=== PATIENT | female | born 1975 | race Caucasian/White ===

== ENCOUNTER 2022-11-28 15:26 | Outpatient (REF) | payer MEDICAID, SELFPAY ==
--- OUTSIDE RECORDS SUMMARY | 2022-11-28 15:29 | XMS_ITS | CCD ---
Author Name Unknown Address [address] [place] [address] [phone] Organization Unknown Address [address] [place] [address] [phone] Care Team Providers Care Freezing Machine Operator Name Role Phone RITA FAUSTIN Attending Physician [phone] Vital Signs Unknown or Not Available. Allergies Allergy Code Allergy Type Reaction Status MORPHINE 7052 Drug allergy Nausea Active Procedures Unknown or Not Available. History of Immunizations Unknown or Not Available. Problems No Known Problems Results Unknown or Not Available. Active Medications Medication Code Dose Units Frequency Route Modificatio n Start Date/Time Keflex 500MG Oral Capsule 374578 1 CAPSULE TWICE A DAY ORAL 05/26/19 23 18:12 Prescription Detail TAKE 1 CAPSULE ORAL TWICE A DAY Medications Administered During Visit Unknown or Not Available. 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 If you have left the hospital and have any questions, please contact your primary care physician. Chief Complaint and Reason For Visit Chief Complaint Date of Onset CERVICALAGIA Function Status Unknown or Not Available. Plan of Care Unknown or Not Available. Referral/Transition of Care Unknown or Not Available.
--- OUTSIDE RECORDS SUMMARY | 2022-11-28 15:29 | XMS_ITS | CCD ---
Author Name Unknown Address [address] [place] [address] [id number] Organization Unknown Address [address] [place] [address] [phone] Care Team Providers Care Donation Specialist Name Role Phone RITA FAUSTIN Attending Physician [phone] Vital Signs Unknown or Not Available. Allergies Allergy Code Allergy Type Reaction Status MORPHINE 7052 Drug allergy Nausea Active Procedures Unknown or Not Available. History of Immunizations Unknown or Not Available. Problems No Known Problems Results Unknown or Not Available. Active Medications Medication Code Dose Units Frequency Route Modificatio n Start Date/Time Keflex 500MG Oral Capsule 047895 1 CAPSULE TWICE A DAY ORAL 05/26/19 23 18:12 Prescription Detail TAKE 1 CAPSULE ORAL TWICE A DAY Medications Administered During Visit Unknown or Not Available. Encounters Encounter Diagnosis Diagnosis Code Start Date Encounter for screening mamm ogram for malignant neoplasm of breast Z1231 04/26/2021 Social History Smoking Status Code Start Date End Date Never smoker [id number] Patient Decision Aids Unknown or Not Available. Discharge Instructions You were admitted to [facility] on 04/26/2021 08:24 with a principal diagnosis of Encounter for screening mammogram for malignant neoplasm of breast You were discharged from [facility] on 04/26/2021 08:24 Should you have any questions prior to discharge, please contact a member of your healthcare team. If you have left the hospital and have any questions, please contact your primary care physician. Chief Complaint and Reason For Visit Chief Complaint Date of Onset SCREENING NECK PAIN LOW BACK PAIN Function Status Unknown or Not Available. Plan of Care Unknown or Not Available. Referral/Transition of Care Unknown or Not Available.
--- OUTSIDE RECORDS SUMMARY | 2022-11-28 15:29 | XMS_ITS | CCD ---
Author Name Unknown Address [address] [place] [address] [phone] Organization Unknown Address [address] [place] [address] [phone] Care Team Providers Care Welfare Director Name Role Phone RITA FAUSTIN Attending Physician [phone] Vital Signs Unknown or Not Available. Allergies Allergy Code Allergy Type Reaction Status MORPHINE 7052 Drug allergy Nausea Active Procedures Unknown or Not Available. History of Immunizations Unknown or Not Available. Problems No Known Problems Results Unknown or Not Available. Active Medications Medication Code Dose Units Frequency Route Modificatio n Start Date/Time Keflex 500MG Oral Capsule 522826 1 CAPSULE TWICE A DAY ORAL 05/26/19 23 18:12 Prescription Detail TAKE 1 CAPSULE ORAL TWICE A DAY Medications Administered During Visit Unknown or Not Available. Encounters Encounter Diagnosis Diagnosis Code Start Date Degeneration of lumbar intervertebral disc 13739 006 08/16/2021 Social History Smoking Status Code Start Date End Date Never smoker [id number] Patient Decision Aids Unknown or Not Available. Discharge Instructions You were admitted to [facility] on 08/16/2021 07:35 with a principal diagnosis of Other intervertebral disc degeneration, lumbar region You were discharged from [facility] on 08/16/2021 07:35 Should you have any questions prior to discharge, please contact a member of your healthcare team. If you have left the hospital and have any questions, please contact your primary care physician. Chief Complaint and Reason For Visit Chief Complaint Date of Onset LBP Function Status Unknown or Not Available. Plan of Care Unknown or Not Available. Referral/Transition of Care Unknown or Not Available.
--- OUTSIDE RECORDS SUMMARY | 2022-11-28 15:29 | XMS_ITS | Continuity of Care Document ---
Author Name Unknown Organization [facility] Address [address] [place] [address] Care Team Providers Care Dispatch Clerk Name Role Phone Denise Ronquillo Primary Care Physician [facility] - 10/23/[address] [address] Discharge Disposition: Home or Self Care Attending Physician: iCelo Christine NP Admitting Physician: Cielo Christine NP Referring Physician: Cielo Christine CHIEF COMPRESSOR STATION ENGINEER Allergies, Adverse Reactions, Alerts Substance Reaction Severity Status morphine Unknown Active Ambien Unknown Active Assessment and Plan Future Appointments Medications eszopiclone 3 mg oral tablet 3 mg = 1 tab, Oral, every day at bedtime, PRN as needed for insomnia, 0 Refill(s) Start Date: 09/26/22 Status: Ordered Problem List Condition Confirmation Course Effective Dates Status H ealth Status Informant Acute depression Confirmed Active Bunion, left foot Confirmed Active Back pain, chronic Confirmed Active Chronic insomnia Confirmed Active History of posttraumatic stress disorder (PTSD) Confirmed Active IBS (irritable bowel syndrome) Confirmed Active Restless leg syndrome Confirmed Active Snoring Confirmed Active Social History Social History Type Response Tobacco Former tobacco user Tobacco Use:. 1 Sex Female 1quit 1995 Patient Care team information Care Team Personnel Name: Denise Ronquillo MD Position: No Access Member Role: Primary Care Physician Care Team Related Persons Name: ELISEO WALLACE
--- OUTSIDE RECORDS SUMMARY | 2022-11-28 15:29 | XMS_ITS | Continuity of Care Document ---
Author Name Unknown Organization [facility] Address [address] [place] [address] Care Team Providers Care Warehouse Shipping Associate Name Role Phone Denise Ronquillo Primary Care Physician Encounter [facility] Date(s): 09/26/22 - 09/26/22 [facility] [address] [place] [address] Discharge Disposition: Home Allergies, Adverse Reactions, Alerts Substance Reaction Severity [...]
--- OUTSIDE RECORDS SUMMARY | 2022-11-28 15:29 | XMS_ITS | Continuity of Care Document ---
Author Name Unknown Organization [facility] Address [address] [place] [address] Care Team Providers Care Data Processing Systems Project Planner Name Role Phone Denise Ronquillo Primary Care Physician [phone] Encounter [facility] Date(s): 09/26/22 - 09/26/22 [facility] [address] [place] [address] Encounter Diagnosis Chronic insomnia(Discharge Diagnosis) - 09/25/22 Snoring(Discharge Diagnosis) - 09/26/22 Restless leg syndrome(Discharge Diagnosis) - 09/26/22 Discharge Disposition: Home or Self Care Attending Physician: Cielo Christine CARTON LINER Allergies, Adverse Reactions, Alerts Substance Reaction Severity Status morphine Unknown Active Ambien Unknown Active Assessment and Plan Future Appointments Functional Status 09/26/22 Other exposure to Infectious Disease Non e Medications eszopiclone 3 mg oral tablet 3 [...] leg syndrome Confirmed Active Snoring Confirmed Active Vital Signs Most recent to oldest [Reference Range]: 1 Peripheral Pulse Rate [60-100 bpm] 71 bp m (09/26/22 12:08 PM) Blood Pressure [90-140/60-90 mmHg] 123/7 2mmHg (09/26/22 12:08 PM) Weight 63.50 kg (09/26/22 12:08 PM) Weight Measured (lbs) 139.993 lb (09/26/22 12:08 PM) Height 158 cm (09/26/22 12:08 PM) Height/Length Measured (inches) 62.2 inc h (09/26/22 12:08 PM) BSA Measured 1.67 m2 (09/26/22 12:08 PM) Body Mass Index 25.44 kg/m2 (09/26/22 12:08 PM) Social History Social History Type Response Tobacco Former tobacco user Tobacco Use:. 1 Sex Female 1quit 1995 Polysomnography (sleep) study * Madi Andersen: PERFORM Event Display: Sleep Study Authored Date: * Madi Andersen: PERFORM Event Display: Sleep Study Authored Date: [id number] Physician Outpatient Note * Cielo Christine CARTON LINER: PERFORM Event Display: Office Clinic Note Physician Authored Date: [id number] BEBETO WALLACE :1975 Age:47 years Sex:Female Visit Date:09/26/2022 Primary Care Physician: Denise Ronquillo MD History of Present Illness Bebeto Wallace is seen at the request of Denise Ronquillo MD for evaluation of insomnia. ?? Bebeto has a medical history to include PTSD, anxiety, depression, insomnia, back pain and IBS. ?? Currently using Lunesta a few times a week, found trazodone ineffective, did not want to try Mirtazapine due to possible weight gain. Reportedly had a sleep study at [facility] many years ago ?? Bebeto??feels??the biggest problem with sleep is??falling asleep and staying asleep many years.??She typically goes to bed at??8-9 pm and it takes??2 minutes to hours??to fall asleep.??She wakes up??2-5 times a night from dreams/panic. It takes??2-30 minutes to get back to sleep.??She gets up at??5 am to start the day.??She does not take naps.??She sleeps with someone. She has??no disturbances to sleep. ?? Quality of sleep most nights is perceived as poor. ?? Level of daytime alertness is alert. ?? NEUROCOGNITIVE??SYMPTOMS: Has not noted poor or worsening memory. Does not have short concentration. Does not have irritability. Does have anxiety. Does have depression. ?? INSOMNIA SYMPTOMS: Does have an active mind when trying to sleep. Does have stressful or upsetting thoughts that keep them from falling asleep. Does watch the clock often during the night. Does worry about getting a good night of sleep. ?? BREATHING SYMPTOMS: Does snore. Does not stop breathing during sleep. Does not struggle to breathe/gasp while sleeping. Does feel like they are choking or throat is closing during sleep. Does not breathe through mouth in sleep. Does not have nasal congestion during the night. ?? MOVEMENT SYMPTOMS: Does toss and turn at night. Does not have messy sheets after sleep. Does have leg jerks in sleep??as noted??by her (rarely) and at times??prior to sleep. Does have shock sensations feelings in legs at night when she is really tired and they jump when this occurs, Does not have a hard time keeping legs still when trying to rest or sleep. Does get muscle cramps in legs at night. Does not have sleep walking or talking. ?? DREAM SYMPTOMS: Does often have nightmares that interfere with sleep. Does not dream of drowning or suffocating. Does start to dream shortly after falling asleep. Does not see dreams in the room even when awake. Does not see or hear things that aren't really there when falling asleep or waking up. Does not see things in the road when driving that aren't really there. Has not had someone see them act out dreams while sleeping. Has not accidentally injured self in sleep when dreaming. ?? WEAKNESS SYMPTOMS: Does not feel limp, lose strength or fall asleep when angry, surprised or laughing. Does not have leg, arm or face weakness when upset. Does not have episodes of being unable to move when waking up. ?? DRIVING SYMPTOMS: Has not nearly fallen asleep when driving. Has not had an accident related to drowsy driving or not paying attention. Does forget the last few minutes or miles driven. Does not drive out of marilyn and cross center line or go onto shoulder when driving. Has not had a passenger tell them they look sleepy when driving. ?? ESS today 5/24 Portland Score 1/3 Review of Systems night sweats (weekly), palpitations, constipation, diarrhea, abdominal cramps, back pain. Wakes with heart racing. No morning headaches or nocturnal heartburn. Physical Exam Vitals & Measurements HR:??71??(Peripheral)?? BP:??123/72?? SpO2:??100%?? HT:??158??cm?? WT:??63.50??kg?? BMI:??25.44?? BSA:??1.67?? GENERAL: answers questions appropriately, well groomed, normal weight. HEAD: normocephalic and atraumatic. EYES: non icteric NOSE: open nasal passages, septum midline, no polyps. MOUTH: moist mucous membranes, modified mallampati score 4, tonsils without hypertrophy, lateral wall narrowing grade 2, Tongue scalloping is noted. NECK: Supple without palpable lymph nodes. LUNGS: CTA all montaño. Good air movement throughout. CARDIO: RRR without murmur, gallop or thrill. ABDOMEN: Soft and non tender with + bowel sounds. MUSCULOSKELETAL: good ROM all extremities, no edema. NEURO: alert and oriented, normal gait. PYSCH: normal mood and affect. CUTANEOUS: no overt lesions or rashes.?? Clinic Assessment/Plan 1.??Chronic insomnia??F51.04 She has difficulty falling asleep and returning to sleep. Her psychiatric disorders (anxiety, depression, PTSD)??likely play a large role in her insomnia as she reports frequently waking in a panic. Currently using Lunesta 3 mg??a few times a week and feels this is only effective sometimes. She??found trazodone ineffective, did not want to try Mirtazapine due to possible weight gain. Reportedlyhad a sleep study at [facility] many years ago. She was treated with Restoril for a period of time but came off it after her PCP shamed her so she came off. She slept well when on Restoril. Her dreams arevivid and she has a PTSD history. She has not been on prazosin. She has not ever done any CBTi. I saldana ve recommended the book Say Lynda to Insomnia by Jesse Burnett, PhD. I briefly discussed sleeprestriction??and instructed her to get out of bed when she can't fall back to sleep and to avoid looking at the time during the night. She does see a therapist weekly and just got back to that last month. ??She also could have JOSEPH or PLMS contributing to poor sleep as below so will get a PSG for furtherevaluation. 2.??Snoring??R06.83 She reports mild snoring, fatigue and sleep fragmentation. She has a Portland score of 1/3 indicatinga low likelihood of JOSEPH but given her long history of insomnia I am recommending?? proceeding with a PSG. I discussed the pathophysiology of obstructive sleep apnea and the potential consequences of u ntreated JOSEPH including how it relates to her symptoms and comorbidities. I ordered a polysomnogram and discussed what will take place the night of the sleep study. I will see her back vis??Zoom??to review the results as soon as they are available. She is advised to bring her Lunesta to the study and she should not be offered Ambien as she had poor tolerance to this in the past. 3.??Restless leg syndrome??G25.81 Occasional RLS symptoms as well as leg jerks prior and during sleep. She may have PLMS contributingto poor sleep. Will get PSG as above. Problem List/Past Medical History Ongoing Acute depression Back pain, chronic Bunion, left foot Chronic insomnia History of posttraumatic stress disorder (PTSD) IBS (irritable bowel syndrome) Restless leg syndrome Snoring Historical No qualifying data Medications What How Much When Comments Stop Taking escitalopram (escitalopram 5 mg oral tablet) 2 tab Oral (given by mouth) Every day Allergies Ambien morphine Social History Electronic Cigarette/Vaping Electronic Cigarette Use: Never. Tobacco Former tobacco user Tobacco Use:.- Comments: quit 1995 Electronically Signed on 09/26/22 12:58 PM Cielo Christine NP * Madi Andersen: PERFORM Event Display: Office Clinic Note Physician Authored Date: [id number] Patient Care team information Care Team Personnel Name: Denise Ronquillo MD Position: No Access Member Role: Primary Care Physician
--- OUTSIDE RECORDS SUMMARY | 2022-11-28 15:30 | XMS_ITS | CCD ---
Author Name Unknown Address [address] [place] [address] [phone] Organization Unknown Address [address] [place] [address] [phone] Care Team Providers Care Aluminum Siding Mechanic Name Role Phone TED OSORIO Attending Physician [phone] TED OSORIO Er Physician 4 [phone] NINA Vogel Registered Nurse [phone] Vital Signs Vital Sign Value Unit Date/Time Recent/Initial ? BMI (Body Mass Index) 25.61 kg/m^2 05/26/2022 17: 02 Initial VS Weight Measured 140 lbs 05/26/2022 17:02 Ini tial VS Height 62 in 05/26/2022 17:02 Initial VS BSA (Body Surface Area) 1.67 m^2 05/26/2022 1 7:02 Initial VS BP Systolic 121 mmHg 05/26/2022 17:02 Initial VS BP Diastolic 90 mmHg 05/26/2022 17:02 Initia l VS Respiratory Rate 16 bpm 05/26/2022 17:02 In itial VS Heart Rate 69 bpm 05/26/2022 17:02 Initial VS O2 % BldC Oximetry 100 % 05/26/2022 17:02 Initial VS Body Temperature 36.9 degrees 05/26/2022 17:02 In itial VS Allergies Allergy Code Allergy Type Reaction Status MORPHINE 7052 Drug allergy Nausea Active AMBIEN 982524 Drug allergy Active Procedures Unknown or Not Available. History of Immunizations Unknown or Not Available. Problems No Known Problems Results URINALYSIS WITH MICROSCOPIC* - Collect Date/Time: 05/26/2022 17:36 Test Name Code Test Result Test Units Test Ref Rang e COLLECTION MODE: 51620-9 CLEAN CATCH N/A Color 5778-6 YELLOW N/A yellow Appearance 5767-9 SL CLOUD N/A clear Glucose urine 65961-4 NEGATIVE N/A negative mg /dl Bilirubin 5770-3 NEGATIVE N/A negative Ketones 2514-8 NEGATIVE N/A negative mg/dl Spec gravity 5811-5 1.025 N/A 1.003 - 1.03 0 pH urine 2756-5 6.5 N/A 5.0 - 7.0 Protein 18792-3 NEGATIVE N/A negative mg/dl Urobilinogen 79572-3 0.2 N/A <or= 1 EU/dl Nitrite 5802-4 NEGATIVE N/A negative Blood 5794-3 NEGATIVE N/A negative Leukocytes 63560-6 TRACE N/A negative WBCs 84694-8 25-100 N/A 0-5 / hpf RBCs 02611-0 0-5 N/A 0-5 / hpf Epith cells 66115-0 25-100 N/A 0-5 / hpf Cell types squamous N/A Crystals none N/A none Bacteria large N/A none Mucus 8247-9 present N/A none Casts none N/A none /lpf Active Medications Medications Administered During Visit Medication Dose Units Frequency Route Date/Time of Last Dose CEPHALEXIN CAPSULE: 500MG 500 MG X1 PO 05/26/2022 18:24 Encounters Encounter Diagnosis Diagnosis Code Start Date Urinary tract infection, site not specified N390 05/26/2022 Social History Smoking Status Code Start Date End Date Never smoker [id number] Patient Decision Aids Unknown or Not Available. Discharge Instructions You were admitted to [facility] on 05/26/2022 16:34 with a principal diagnosis of Urinary tract infection, site not specified You had the following tests done:URINALYSIS WITH MICROSCOPIC* You were discharged from [facility] on 05/26/2022 18:28 Should you have any questions prior to discharge, please contact a member of your healthcare team. If you have left the hospital and have any questions, please contact your primary care physician. Chief Complaint and Reason For Visit Chief Complaint Date of Onset POSSIBLE UTI Function Status Unknown or Not Available. Plan of Care Unknown or Not Available. Referral/Transition of Care Unknown or Not Available.
--- OUTSIDE RECORDS SUMMARY | 2022-11-28 15:30 | XMS_ITS | CCD ---
Author Name Unknown Address [address] [place] [address] [phone] Organization Unknown Address [address] [place] [address] [id number] Care Team Providers Care Pulp Making Plant Operator Name Role Phone MITCH YUAN Attending Physician [phone] MITCH YUAN Er Physician 4 [phone] ELIZABETH Villegas Registered Nurse [phone] Vital Signs Vital Sign Value Unit Date/Time Recent/Initial ? BMI (Body Mass Index) 26.21 kg/m^2 04/25/2022 15: 45 Initial VS Weight Measured 143.3 lbs 04/25/2022 15:45 Ini tial VS Height 62 in 04/25/2022 15:45 Initial VS BSA (Body Surface Area) 1.69 m^2 04/25/2022 1 5:45 Initial VS BP Systolic 140 mmHg 04/25/2022 15:45 Initial VS BP Diastolic 97 mmHg 04/25/2022 15:45 Initia l VS Respiratory Rate 16 bpm 04/25/2022 15:45 In itial VS Heart Rate 77 bpm 04/25/2022 15:45 Initial VS O2 % BldC Oximetry 100 % 04/25/2022 15:45 Initial VS Body Temperature 37.6 degrees 04/25/2022 15:45 In itial VS BP Systolic 131 mmHg 04/25/2022 16:43 Most Re cent VS BP Diastolic 74 mmHg 04/25/2022 16:43 Most R ecent VS Respiratory Rate 14 bpm 04/25/2022 16:[address] Recent VS Heart Rate 75 bpm 04/25/2022 16:43 Most Rec ent VS O2 % BldC Oximetry 99 % 04/25/2022 16:43 Most Recent VS Body Temperature 37.5 degrees 04/25/2022 16:[address] Recent VS Allergies Allergy Code Allergy Type Reaction Status MORPHINE 7052 Drug allergy Nausea Active AMBIEN 549588 Drug allergy Active Procedures Unknown or Not Available. History of Immunizations Unknown or Not Available. Problems No Known Problems Results [facility] Dog Digital FLU RSV GENEXPE RT - Collect Date/Time: 04/25/2022 15:58 Test Name Code Test Result Test Units Test Ref Dora BONILLAID 32926-8 NEGATIVE N/A Normal: Negati ve INFLUENZA A DNA 28327-3 NEGATIVE N/A Normal: N egative INFLUENZA B DNA 77516-9 NEGATIVE N/A Normal: N egative RSV DNA 36131-1 POSITIVE N/A Normal: Negati ve Active Medications Medications Administered During Visit Medication Dose Units Frequency Route Date/Time of Last Dose AZITHROMYCIN TABLET: 250MG 500 MG X1 PO 04/25/2022 16:40 Encounters Encounter Diagnosis Diagnosis Code Start Date Bronchitis, not specified as acute or chronic J4 0 04/25/2022 Social History Smoking Status Code Start Date End Date Never smoker [id number] Patient Decision Aids Unknown or Not Available. Discharge Instructions You were admitted to [facility] on 04/25/2022 15:42 with a principal diagnosis of Bronchitis, not specified as acute or chronic You had the following tests done:[employer] FLU RSV GENEXPERT You were discharged from [facility] on 04/25/2022 16:43 Should you have any questions prior to discharge, please contact a member of your healthcare team. If you have left the hospital and have any questions, please contact your primary care physician. Chief Complaint and Reason For Visit Chief Complaint Date of Onset COVID SYMPTOMS Function Status Unknown or Not Available. Plan of Care Unknown or Not Available. Referral/Transition of Care Unknown or Not Available.
[2022-11-28 21:11] LABS: HCT 40.5 % (36.0-46.0); HGB 13.3 g/dL (11.2-15.7); MCH 30.4 pg (27.0-33.0); MCHC 32.8 % (32.0-36.0); MCV 93 fL (80-95); MPV 10.4 fL (8.0-11.0); Platelet Count 236 10^3/uL (130-400); RBC 4.37 10^6/uL (3.93-5.22); WBC 6.73 10^3/uL (4.4-10.8)
[2022-11-28 21:30] LABS: Hemoglobin A1C 5.5 % (<5.7)
[2022-11-28 21:31] LABS: Iron 122 ug/dL (50-170); Total Iron Binding Capacity 349 ug/dL (250-450); Transferrin Sat 35 % (15-50)
[2022-11-28 21:41] LABS: Anion Gap 10.8 mmol/L (3-11); BUN 13 mg/dL (7-18); CO2 24.2 mmol/L (21.0-32.0); CREATININE 0.7 mg/dL (0.55-1.02); Calcium 8.6 mg/dL (8.5-10.1); Chloride 106 mmol/L (98-107); Estimated GFR 107.28 (mL/min/1.73m2); Ferritin 67 ng/mL (8-252); Glucose 76 mg/dL (74-106); Potassium 4.5 mmol/L (3.5-5.1); Sodium 141 mmol/L (136-145); TSH (W/Ref FT4) 0.96 uIU/mL (0.36-3.74)
== END 2022-11-28 15:27 | disposition home or self-care (01) ==
LOC: NCHCN 15:26
PROVIDERS: PCP Family Medicine; Visit Provider Family Medicine
DX: R53.83 Other fatigue (principal); R40.0 Somnolence; R73.01 Impaired fasting glucose
CPT/HCPCS: 80048; 85027; 82728; 83036; 83540; 83550; 84443

== ENCOUNTER 2023-10-21 19:45 | Outpatient (REF) | payer BC, SELFPAY | END 2023-10-21 19:46 | disposition home or self-care (01) | LOC: NCHCN 19:45 | PROVIDERS: PCP Family Medicine; Visit Provider Family Medicine | DX: R39.9 Unspecified symptoms and signs involving the genitourinary system (principal); B96.20 Unspecified Escherichia coli [E. coli] as the cause of diseases classified elsewhere | CPT/HCPCS: 87077; 87086; 87186 ==

== ENCOUNTER 2023-12-02 10:49 | Outpatient (REF) | payer BC, SELFPAY | END 2023-12-02 10:50 | disposition home or self-care (01) | LOC: NCHCN 10:49 | PROVIDERS: PCP Family Medicine; Visit Provider Internal Medicine | DX: N39.0 Urinary tract infection, site not specified (principal); B96.29 Other Escherichia coli [E. coli] as the cause of diseases classified elsewhere; R39.89 Other symptoms and signs involving the genitourinary system | CPT/HCPCS: 87077; 87086; 87186 ==

== ENCOUNTER 2024-03-07 21:37 | Outpatient (REF) | payer BC, SELFPAY ==
[2024-03-07 21:25] LABS: Abs Immature Grans 0.01 10^3/uL (0.0-0.06); Absolute Basophil Count 0.02 10^3/uL (0.0-0.2); Absolute Eosinophil Count 0.04 10^3/uL (0.0-0.7); Absolute Lymphocyte Count 2.49 10^3/uL (1.2-3.4); Absolute Monocyte Count 0.69 10^3/uL (0.1-0.8); Absolute Neutrophil Count 4.39 10^3/uL (1.2-6.7); Basophils % 0.3 %; Eosinophils % 0.5 %; HCT 35.5 % (36.0-46.0); HGB 12.1 g/dL (11.2-15.7); Immature Grans % 0.1 %; Lymphocytes % 32.6 %; MCH 31.7 pg (27.0-33.0); MCHC 34.1 % (32.0-36.0); MCV 93 fL (80-95); MPV 10.4 fL (8.0-11.0); Neutrophils % 57.5 %; Platelet Count 208 10^3/uL (130-400); RBC 3.82 10^6/uL (3.93-5.22); RDW 12.7 % (11.7-14.6); RDW-SD 43.4 fL; WBC 7.64 10^3/uL (4.4-10.8)
[2024-03-07 21:43] LABS: Anion Gap 9.3 mmol/L (3-11); BUN 22 mg/dL (7-18); CO2 26.7 mmol/L (21.0-32.0); CREATININE 0.7 mg/dL (0.55-1.02); Calcium 9.1 mg/dL (8.5-10.1); Chloride 106 mmol/L (98-107); Estimated GFR 106.62 (mL/min/1.73m2); Glucose 82 mg/dL (74-106); Potassium 4.5 mmol/L (3.5-5.1); Sodium 142 mmol/L (136-145)
[2024-03-08 18:19] LABS: CRP, High Sensitivity <0.34 mg/L (See Note)
== END 2024-03-07 21:38 | disposition home or self-care (01) ==
LOC: NCHCN 21:37
PROVIDERS: PCP Family Medicine; Visit Provider Family Medicine
DX: Z01.818 Encounter for other preprocedural examination (principal)
CPT/HCPCS: 80048; 86141; 85025